=== PATIENT | male | born 1970 | race Caucasian/White ===

== ENCOUNTER 2020-05-01 23:50 | Emergency (ER) | payer BC ==
[~2020-05-01] VITALS: Ht 165.1 cm; Wt 96.2 kg
[2020-05-02 00:25] VITALS: BP 151/96
[2020-05-02] MEDS ORDERED: KETOROLAC 15 MG/ML VIAL IVP ONE (00:40)
[2020-05-02] MEDS ORDERED: ONDANSETRON 4 MG/2 ML VIAL IVP ONE (00:40)
[2020-05-02] MEDS ORDERED: MORPHINE SULFATE 4 MG/ML SYR IVP ONE (00:40)
--- NOTE | 2020-05-02 00:45 | NUR ---
50 Y/O MALE C/O LEFT FLANK AND LOWER BACK PAIN X 2 HRS. PT RATES PAIN 10/10 AND IS CONSTANT AND SHARP AND RADIATES TO LOWER ABD/ SUPRAPUBIC REGION. DENIES TAKING ANY PAIN MEDS. +NAUSEA, + VOMITING. DENIES ANY BLOOD IN URINE OR IN THE VOMIT. DENIES ANY DYSURIA. + PALE, AND + DIAPHORETIC. VSS. PT BREATHING EVEN AND UNLABORED. A/O X 4. PT [place] SPEAKING ONLY. PT LAYING IN GURNEY LOCKED AND IN LOWEST POSITION, HOB ELEVATED, SIDE RAIL X1. PMH: NONE RX: NONE NKA
[2020-05-02 00:54] LABS: BASOPHILS # (AUTO) 0.1 K/uL (0.00-0.22); BASOPHILS % (AUTO) 0.7 % (0.0-2.0); EOSINOPHILS # (AUTO) 0.1 K/uL (0-0.4); EOSINOPHILS % (AUTO) 0.6 % (0.0-4.0); HEMATOCRIT 47.2 % (36-52); HEMOGLOBIN 15.8 g/dL (12.0-18.0); LYMPHOCYTES # (AUTO) 1.3 K/uL (2.0-11.5); LYMPHOCYTES % (AUTO) 10.7 % (20.5-51.1); MEAN CORPUSCULAR HEMOGLOBIN 32 pg (27-31); MEAN CORPUSCULAR HGB CONC 33 g/dL (33-37); MEAN CORPUSCULAR VOLUME 94.2 fL (80-94); MONOCYTES # (AUTO) 0.5 K/uL (0.8-1.0); MONOCYTES % (AUTO) 4.3 % (1.7-9.3); NEUTROPHILS # (AUTO) 10.2 K/uL (1.8-7.7); NEUTROPHILS % (AUTO) 83.7 % (42.2-75.2); PLATELET COUNT (AUTO) 188 K/uL (140-450); RED BLOOD CELL COUNT(AUTO) 5.01 MIL/uL (4.20-6.10); RED CELL DISTRIBUTION WIDTH 13.9 % (11.6-13.7); WHITE BLOOD COUNT (AUTO) 12.2 K/uL (4.8-10.8)
[2020-05-02 01:08] LABS: APPEARANCE,URINE CLOUDY (CLEAR); BILIRUBIN,URINE NEGATIVE (NEGATIVE); BLOOD, URINE 3+ (NEGATIVE); COLOR,URINE YELLOW (YELLOW); LEUKOCYTE ESTERASE ,URINE NEGATIVE (NEGATIVE); NITRITE, URINE NEGATIVE (NEGATIVE); PH,URINE 6.5 (5.0-9.0); UGLUCOSE NEGATIVE (NEGATIVE)
[2020-05-02 01:11] LABS: ALBUMIN 3.8 g/dL (3.4-5.0); ANION GAP 10.6 (8-16); CREATININE 1.2 mg/dL (0.6-1.3); POTASSIUM 3.6 mmol/L (3.5-5.1); TOTAL BILIRUBIN 0.3 mg/dL (0.0-1.0)
[2020-05-02 01:18] LABS: RBC,URINE TOO NUMEROUS TO COUN /HPF (0-5); WBC,URINE 0-5 /HPF (0-5)
--- NOTE | 2020-05-02 01:26 | NUR ---
PT TAKEN CT VIA W/C.
--- NOTE | 2020-05-02 01:35 | NUR ---
PT RETURNED FROM CT VIA W/C
--- NOTE | 2020-05-02 01:35 | NUR ---
PT RETURNED FROM CT VIA W/C. PT RESTING IN GURNEY AT LOWEST POSITION, HOB ELEVATED, SIDE RAIL X1.
--- NOTE | 2020-05-02 01:54 | NUR ---
PT MOVED FROM CHAIR C TO BED #12.
--- NOTE | 2020-05-02 02:20 | NUR ---
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 PT SLEEPING IN BED LOCKED AT LOWEST POSITION, HOB ELEVATED, SIDE RAIL X1.
--- NOTE | 2020-05-02 03:00 | NUR ---
ERMD AT BEDSIDE.
[2020-05-02] MEDS ORDERED: HYDROcodone/APAP 5/325 MG 1 TAB TAB PO ONE (03:35)
[2020-05-02 03:40] VITALS: BP 143/81
--- NOTE | 2020-05-02 03:40 | NUR ---
Patient discharged with v/s stable. Written and verbal after care instructions given and explained. Patient alert, oriented and verbalized understanding of instructions. Ambulatory with steady gait. All questions addressed prior to discharge. ID band removed. Patient advised to follow up with PMD. Rx of NORCO AND ZOFRAN, TAMSULOSIN HYDROCHLORIDE given. Patient educated on indication of medication including possible reaction and side effects. Opportunity to ask questions provided and answered.
== END 2020-05-02 04:22 | disposition home or self-care (01) ==
LOC: MED 23:50
DX: N23 Unspecified renal colic (principal)
CPT/HCPCS: 36415; 74176; 80053; 81001; 83690; 85025; 96374; 96375; 99284; J1885; J2270; J2405